=== PATIENT | female | born 1945 | race American Indian/Alaskan Native ===

== ENCOUNTER 2016-06-26 16:08 | Emergency (ER) | payer MEDICARE ==
--- NOTE | 2016-06-26 18:46 | Emergency Department Report ---
Chief Complaint: Dyspnea/Respdistress Stated Complaint: VOMITING/DIARRHEA/LEG PAIN/HISTORY HEART/STROKE Time Seen by Provider: 06/26/16 18:35 - HPI History of Present Illness: Patient here complaining nausea vomiting and diarrhea since Wednesday. She said she vomited once today. Reports diarrhea 2 today. She is complaining or right calf pain and says she had a clot in the past. She reports shortness of breath 2 days. Patient has a history of open-heart surgery. She is reporting left-sided chest pain off and on since this afternoon. Pain is 8 out of 10 to right leg and 5 out of 10 to left chest. She denies any fever or chills. - ROS Review of Systems: All systems are negative unless stated in HPI above. - Exam Vital Signs: Vital Signs 06/26/16 18:35 Temperature 97.8 F Pulse Rate 67 Respiratory 20 Rate Blood Pressure 164/89 O2 Sat by Pulse 97 Oximetry Physical Exam: General: This is a 71-year-old female appears to be in distress CV: S1, S2. Regular rate and rhythm. Lungs: Diminished air entry throughout lung pimentel due to COPD. Increased work of breathing. Extremity: No swelling or redness noted to lower extremities. Patient reports pain to RT calf when she stands and her toes. MSE screening note: Focused history and physical exam performed. Due to findings the following was ordered:see mdm ED Medical Decision Making - Medical Decision Making Medical decision making: Patient seen by provider in triage area. Appropriate protocol activated and patient to main ED to be seen by physician. ED Disposition for MSE Condition: Stable
[2016-06-26 20:10] LABS: Basophils % (Auto) 0.7 % (0.0-1.8); Eosinophils % (Auto) 1.2 % (0.0-4.3); Hemoglobin 13.9 gm/dl (10.1-14.3); Mean Corpuscular HGB Conc 33 % (30-34); Mean Corpuscular Hemoglobin 29 pg (28-32); Mean Corpuscular Volume 87 fl (79-97); Platelet Count 149 K/mm3 (140-440); Red Blood Count 4.82 M/mm3 (3.65-5.03); Red Cell Distribution Width 13.9 % (13.2-15.2); White Blood Count 7.6 K/mm3 (4.5-11.0)
[2016-06-26 20:22] LABS: INR 0.93 (0.87-1.13); Partial Thromboplastin Time 26.4 Sec. (24.2-36.6)
[2016-06-26 20:30] LABS: Alanine Aminotransferase 14 units/L (7-56); Albumin 4.5 g/dL (3.9-5); Albumin/Globulin Ratio 1.5 %; Alkaline Phosphatase 87 units/L (35-129); Bilirubin,Total 0.5 mg/dL (0.1-1.2); Blood Urea Nitrogen 12 mg/dL (7-17); Calcium 9.3 mg/dL (8.4-10.2); Carbon Dioxide 24 mmol/L (22-30); Chloride 101.5 mmol/L (98-107); Creatine Kinase 171 units/L (30-135); Glucose 103 mg/dL (65-100); Potassium 3.9 mmol/L (3.6-5.0); Sodium 141 mmol/L (137-145); Total Protein 7.6 g/dL (6.3-8.2)
[2016-06-26 20:34] LABS: Anion Gap 19 mmol/L
[2016-06-26] MEDS ORDERED: TYLENOL PO ONE (20:44)
[2016-06-26] MEDS ORDERED: NACL ONE (20:45)
--- NOTE | 2016-06-26 20:50 | Emergency Department Report ---
ED General Adult HPI - General Chief complaint: Dyspnea/Respdistress Stated complaint: VOMITING/DIARRHEA/LEG PAIN/HISTORY HEART/STROKE Time Seen by Provider: 06/26/16 18:45 Source: patient Mode of arrival: Ambulatory Limitations: Physical Limitation - History of Present Illness Initial comments: Patient is a 71-year-old female with history of diabetes, hypertension, CHF, COPD, history of a right lower extremity DVT currently not on any anticoagulation presents today because of multiple bouts of nausea vomiting and diarrhea for the last 5 days. Patient states that she has occasional abdominal pain with this and currently has mild periumbilical pain. States the she also has right lower extremity pain in the same location where she had a prior DVT. In addition she is complaining about left-sided chest pain that started this afternoon. She denies any significant shortness of breath. Severity scale (0 -10): 8 - Related Data Home Medications Medication Instructions Recorded Confirmed Last Taken Carvedilol [Coreg] 6.25 mg PO BID 04/20/13 11/14/14 11/13/14 Furosemide [Lasix] 20 mg PO DAILY 04/20/13 11/14/14 11/13/14 Nitroglycerin [Nitrostat] 0.4 mg SL Q5M PRN 04/20/13 11/14/14 11/13/14 Ranolazine [Ranexa] 1,000 mg PO BID 04/20/13 11/14/14 11/13/14 levETIRAcetam [Keppra TAB] 1,000 mg PO BID 04/20/13 11/14/14 11/13/14 Amlodipine Besylate [Norvasc] 10 mg PO QDAY 10/15/13 11/14/14 11/13/14 Insulin Glargine,Hum.rec.anlog 25 unit SUB-Q QHS 05/20/14 11/14/14 11/13/14 [Lantus Solostar] Insulin Regular, Human Inj 0 unit SQ ACHS PRN 05/20/14 11/14/14 11/13/14 [NovoLIN R Inj] Potassium Chloride [Klor-Con M20] 20 meq PO DAILY 11/14/14 11/14/14 11/13/14 Previous Rx's Medication Instructions Recorded Last Taken Type Losartan [Cozaar] 50 mg PO QDAY #30 tablet 04/25/13 11/13/14 Rx traMADol [Ultram 50 MG tab] 50 mg PO Q4HR PRN #15 tablet 11/13/14 11/13/14 Rx Antacid [Alum-Mag Hydrox-Simeth 30 ml PO Q4H PRN #100 cc 11/20/14 Unknown Rx [id number]] Ciprofloxacin [Ciprofloxacin ORAL 500 mg PO Q12H #14 ml 11/20/14 Unknown Rx LIQ] HYDROcodone/APAP 5-325 [[place] 1 each PO Q6H PRN #30 tablet 11/20/14 Unknown Rx 5-325 mg TAB] Metoclopramide [Reglan TAB] 10 mg PO Q6H PRN #30 tablet 11/20/14 Unknown Rx Omeprazole [PriLOSEC] 40 mg PO DAILY #30 capsule. 11/20/14 Unknown Rx Ranolazine ER [Ranexa ER] 1,000 mg PO BID #60 tablet 11/20/14 Unknown Rx metroNIDAZOLE [Flagyl] 500 mg PO TID #21 tablet 11/20/14 Unknown Rx Acetaminophen [Acetaminophen TAB] 500 mg PO Q6HR #14 tablet 06/26/16 Unknown Rx Acetaminophen/Codeine [Tylenol #3] 1 tab PO Q6H PRN #10 tab 06/26/16 Unknown Rx Allergies Allergy/AdvReac Type Severity Reaction Status Date / Time aspirin Allergy Swelling Verified 06/26/16 18:35 ED Review of Systems ROS: Stated complaint: VOMITING/DIARRHEA/LEG PAIN/HISTORY HEART/STROKE Other details as noted in HPI Comment: All other systems reviewed and negative Constitutional: denies: chills, fever ENT: denies: ear pain Respiratory: denies: cough Cardiovascular: chest pain Gastrointestinal: abdominal pain, vomiting, diarrhea ED Past Medical Hx - Past Medical History Hx Hypertension: Yes (EF 50-60%) Hx CVA: Yes Hx Heart Attack/AMI: Yes Hx Congestive Heart Failure: Yes Hx Diabetes: Yes Hx Deep Vein Thrombosis: Yes Hx Pulmonary Embolism: Yes Hx Headaches / Migraines: No Hx Seizures: Yes Hx COPD: Yes Hx HIV: No Additional medical history: CAD - Surgical History Hx Open Heart Surgery: Yes - Social History Smoking Status: Never Smoker - Medications Home Medications: Home Medications Medication Instructions Recorded Confirmed Last Taken Type Carvedilol [Coreg] 6.25 mg PO BID 04/20/13 11/14/14 11/13/14 History Furosemide [Lasix] 20 mg PO DAILY 04/20/13 11/14/14 11/13/14 History Nitroglycerin [Nitrostat] 0.4 mg SL Q5M PRN 04/20/13 11/14/14 11/13/14 History Ranolazine [Ranexa] 1,000 mg PO BID 04/20/13 11/14/14 11/13/14 History levETIRAcetam [Keppra TAB] 1,000 mg PO BID 04/20/13 11/14/14 11/13/14 History Losartan [Cozaar] 50 mg PO QDAY #30 tablet 04/25/13 11/14/14 11/13/14 Rx Amlodipine Besylate [Norvasc] 10 mg PO QDAY 10/15/13 11/14/14 11/13/14 History Insulin Glargine,Hum.rec.anlog 25 unit SUB-Q QHS 05/20/14 11/14/14 11/13/14 History [Lantus Solostar] Insulin Regular, Human Inj 0 unit SQ ACHS PRN 05/20/14 11/14/14 11/13/14 History [NovoLIN R Inj] traMADol [Ultram 50 MG tab] 50 mg PO Q4HR PRN #15 tablet 11/13/14 11/14/1411/13 Rx Potassium Chloride [Klor-Con M20] 20 meq PO DAILY 11/14/14 11/14/14 11/13/14 History Antacid [Alum-Mag Hydrox-Simeth 30 ml PO Q4H PRN #100 cc 11/20/14 Unknown Rx [id number]/5Ml] Ciprofloxacin [Ciprofloxacin ORAL 500 mg PO Q12H #14 ml 11/20/14 Unknown Rx LIQ] HYDROcodone/APAP 5-325 [[place] 1 each PO Q6H PRN #30 tablet 11/20/14 Unknown Rx 5-325 mg TAB] Metoclopramide [Reglan TAB] 10 mg PO Q6H PRN #30 tablet 11/20/14 Unknown Rx Omeprazole [PriLOSEC] 40 mg PO DAILY #30 capsule. 11/20/14 Unknown Rx Ranolazine ER [Ranexa ER] 1,000 mg PO BID #60 tablet 11/20/14 Unknown Rx metroNIDAZOLE [Flagyl] 500 mg PO TID #21 tablet 11/20/14 Unknown Rx Acetaminophen [Acetaminophen TAB] 500 mg PO Q6HR #14 tablet 06/26/16 Unknown Rx Acetaminophen/Codeine [Tylenol #3] 1 tab PO Q6H PRN #10 tab 06/26/16 Unknown Rx ED Physical Exam - General Limitations: Physical Limitation General appearance: alert - Head Head exam: Present: atraumatic - Eye Eye exam: Present: normal appearance - ENT ENT exam: Present: normal exam - Respiratory Respiratory exam: Present: normal lung sounds bilaterally. Absent: respiratory distress - Cardiovascular Cardiovascular Exam: Present: regular rate, normal rhythm - GI/Abdominal GI/Abdominal exam: Present: soft. Absent: distended, tenderness - Neurological Exam Neurological exam: Present: alert, oriented X3 - Psychiatric Psychiatric exam: Present: normal affect ED Course Vital Signs 06/26/16 06/26/16 06/26/16 18:35 20:23 20:41 Temperature 97.8 F Pulse Rate 67 70 Respiratory 20 18 Rate Blood Pressure 164/89 O2 Sat by Pulse 97 97 Oximetry 06/26/16 21:00 Temperature Pulse Rate 70 Respiratory 12 Rate Blood Pressure 164/80 O2 Sat by Pulse Oximetry ED Medical Decision Making - Lab Data Result diagrams: 06/26/16 19:38 06/26/16 19:50 - Medical Decision Making IV, labs, CTA chest, tylenol CTA chest negative labs unremarkable EKG shows normal sinus rhythm with PACs and PVC, no ST-T changes Patient has no chest pain here. Given that there is no tenderness on the abdomen, no current chest pain, EKG is unchanged from prior and the patient's labs and vitals are unremarkable, patient appears to be stable for outpatient management. I discussed with the patient although results and patient prefers outpatient management. She prefers to go home. The patient to the patient the reasons to return to the emergency room immediately and she endorsed understanding. Critical care attestation.: If time is entered above; I have spent that time in minutes in the direct care of this critically ill patient, excluding procedure time. ED Disposition Clinical Impression: Abdominal pain Qualifiers: Abdominal location: periumbilical Qualified Code(s): R10.33 - Periumbilical pain Disposition: DISCHARGED TO HOME OR SELFCARE Is pt being admited?: No Does the pt Need Aspirin: No Condition: Stable Instructions: Abdominal Pain (ED) Additional Instructions: Please follow up with her primary care doctor in the next 2-3 days. Return to the emergency room if you have any new or worsening symptoms. Prescriptions: Acetaminophen [Acetaminophen TAB] 500 mg PO Q6HR #14 tablet Acetaminophen/Codeine [Tylenol #3] 1 tab PO Q6H PRN #10 tab PRN Reason: Pain Time of Disposition: 23:50
[2016-06-26 21:55] LABS: Bacteria,Urine 1+ /HPF (Negative); Bilirubin,Urine NEG (Negative); Blood,Urine NEG (Negative); Ketones,Urine NEG (Negative); Leukocyte Esterase,Urine NEG (Negative); Nitrite,Urine NEG (Negative); Protein,Urine <15 mg/dL mg/dL (Negative); Urobilinogen,Urine < 2.0 mg/dL (<2.0)
--- NOTE | 2016-06-26 22:41 | Cat Scan Report ---
FINAL REPORT PROCEDURE: CT ANGIO CHEST TECHNIQUE: Computerized tomographic angiography of the chest was performed after the IV injection of iodinated nonionic contrast including image processing. The image data was postprocessed using 2-dimensional multiplanar reformatted (MPR) and 3-dimensional (MIP and/or volume rendered) techniques. HISTORY: left sided cp, hx of dvt COMPARISON: No prior studies are available for comparison. FINDINGS: Mild atelectasis is seen at the right lung base. No pneumothorax or pleural effusion is seen. Intrahepatic and extrahepatic biliary ductal dilation may be a normal postsurgical finding. No mediastinal lymphadenopathy is seen. Heart and thoracic aorta are normal in size. No evidence of dissection is seen but the mid to distal thoracic aorta is not well enhanced to evaluate fully. No pulmonary embolus is seen. IMPRESSION: No pulmonary embolus is seen.
[2016-06-26] MEDS ORDERED: TYLENOL ONE (23:00)
[2016-06-27 00:34] VITALS: BP 165/89
--- NOTE | 2016-06-27 09:56 | XRay Report ---
Chest 2 views: Compared to 05/20/14. History: Dyspnea. Findings: Normal cardiomediastinal silhouette. Trachea is midline. No consolidation, pneumothorax or pleural effusion. Impression: No acute cardiopulmonary findings.
== END 2016-06-27 00:36 | disposition home or self-care (01) ==
LOC: ED 16:08
DX: R10.33 Periumbilical pain (principal); I10 Essential (primary) hypertension; I25.2 Old myocardial infarction; I50.9 Heart failure, unspecified; E11.9 Type 2 diabetes mellitus without complications; G43.909 Migraine, unspecified, not intractable, without status migrainosus; J44.9 Chronic obstructive pulmonary disease, unspecified; Z86.73 Personal history of transient ischemic attack (TIA), and cerebral infarction without residual deficits; Z86.718 Personal history of other venous thrombosis and embolism; Z86.711 Personal history of pulmonary embolism
CPT/HCPCS: 36415; 71020; 71275; 80053; 81001; 82140; 82550; 82553; 84484; 85025; 85610; 85730; 93005; 93010; 99285; Q9967

== ENCOUNTER 2018-09-27 06:43 | Inpatient (IN) | payer MEDICARE ==
--- NOTE | 2018-09-27 08:07 | Emergency Department Report ---
ED General Adult HPI - General Chief complaint: Fall Stated complaint: WEAKNESS/FALL Time Seen by Provider: 09/27/18 07:51 Source: patient, EMS Mode of arrival: Stretcher Limitations: No Limitations - History of Present Illness Initial comments: Patient presents to the emergency department via EMS for syncopal episode. Patient states she woke up at approximately 5 AM to use the restroom and was awakened by neighbors as she was found outside of her home on the front porch with her clothes soiled. Patient denies chest pain, sweats of breath, or abd ominal pain. -: Sudden Severity scale (0 -10): 0 Improves with: none Worsens with: none Associated Symptoms: denies other symptoms Treatments Prior to Arrival: none - Related Data Home Medications Medication Instructions Recorded Confirmed Last Taken Carvedilol [Coreg] 6.25 mg PO BID 04/20/13 11/14/14 11/13/14 Furosemide [Lasix] 20 mg PO DAILY 04/20/13 11/14/14 11/13/14 Nitroglycerin [Nitrostat] 0.4 mg SL Q5M PRN 04/20/13 11/14/14 11/13/14 Ranolazine [Ranexa] 1,000 mg PO BID 04/20/13 11/14/14 11/13/14 levETIRAcetam [Keppra TAB] 1,000 mg PO BID 04/20/13 11/14/14 11/13/14 Amlodipine Besylate [Norvasc] 10 mg PO QDAY 10/15/13 11/14/14 11/13/14 Insulin Glargine,Hum.rec.anlog 25 unit SUB-Q QHS 05/20/14 11/14/14 11/13/14 [Lantus Solostar] Insulin Regular, Human Inj 0 unit SQ ACHS PRN 05/20/14 11/14/14 11/13/14 [NovoLIN R Inj] Potassium Chloride [Klor-Con M20] 20 meq PO DAILY 11/14/14 11/14/14 11/13/14 Previous Rx's Medication Instructions Recorded Last Taken Type Losartan [Cozaar] 50 mg PO QDAY #30 tablet 04/25/13 11/13/14 Rx traMADol [Ultram 50 MG tab] 50 mg PO Q4HR PRN #15 tablet 11/13/14 11/13/14 Rx Antacid [Alum-Mag Hydrox-Simeth 30 ml PO Q4H PRN #100 cc 11/20/14 Unknown Rx [id number]/5Ml] Ciprofloxacin [Ciprofloxacin ORAL 500 mg PO Q12H #14 ml 11/20/14 Unknown Rx LIQ] HYDROcodone/APAP 5-325 [[place] 1 each PO Q6H PRN #30 tablet 11/20/14 Unknown Rx 5-325 mg TAB] Metoclopramide [Reglan TAB] 10 mg PO Q6H PRN #30 tablet 11/20/14 Unknown Rx Omeprazole [PriLOSEC] 40 mg PO DAILY #30 capsule. 11/20/14 Unknown Rx Ranolazine ER [Ranexa ER] 1,000 mg PO BID #60 tablet 11/20/14 Unknown Rx metroNIDAZOLE [Flagyl] 500 mg PO TID #21 tablet 11/20/14 Unknown Rx Acetaminophen [Acetaminophen TAB] 500 mg PO Q6HR #14 tablet 06/26/16 Unknown Rx Acetaminophen/Codeine [Tylenol #3] 1 tab PO Q6H PRN #10 tab 06/26/16 Unknown Rx Allergies Allergy/AdvReac Type Severity Reaction Status Date / Time aspirin Allergy Swelling Verified 06/26/16 18:35 ED Review of Systems ROS: Stated complaint: WEAKNESS/FALL Other details as noted in HPI Comment: All other systems reviewed and negative Constitutional: denies: chills, fever Eyes: denies: eye pain, eye discharge, vision change ENT: denies: ear pain, throat pain Respiratory: denies: cough, shortness of breath, wheezing Cardiovascular: denies: chest pain, palpitations Endocrine: no symptoms reported Gastrointestinal: denies: abdominal pain, nausea, diarrhea Genitourinary: denies: urgency, dysuria, discharge Musculoskeletal: denies: back pain, joint swelling, arthralgia Skin: denies: rash, lesions Neurological: other (syncope). denies: headache, weakness, paresthesias Psychiatric: denies: anxiety, depression Hematological/Lymphatic: denies: easy bleeding, easy bruising ED Past Medical Hx - Past Medical History Hx Hypertension: Yes (EF 50-60%) Hx CVA: Yes Hx Heart Attack/AMI: Yes Hx Congestive Heart Failure: Yes Hx Diabetes: Yes Hx Deep Vein Thrombosis: Yes Hx Pulmonary Embolism: Yes Hx Headaches / Migraines: No Hx Seizures: Yes Hx COPD: Yes Hx HIV: No Additional medical history: CAD - Surgical History Hx Open Heart Surgery: Yes - Social History Smoking Status: Unknown if ever smoked Substance Use Type: None - Medications Home Medications: Home Medications Medication Instructions Recorded Confirmed Last Taken Type Carvedilol [Coreg] 6.25 mg PO BID 04/20/13 11/14/14 11/13/14 History Furosemide [Lasix] 20 mg PO DAILY 04/20/13 11/14/14 11/13/14 History Nitroglycerin [Nitrostat] 0.4 mg SL Q5M PRN 04/20/13 11/14/14 11/13/14 History Ranolazine [Ranexa] 1,000 mg PO BID 04/20/13 11/14/14 11/13/14 History levETIRAcetam [Keppra TAB] 1,000 mg PO BID 04/20/13 11/14/14 11/13/14 History Losartan [Cozaar] 50 mg PO QDAY #30 tablet 04/25/13 11/14/14 11/13/14 Rx Amlodipine Besylate [Norvasc] 10 mg PO QDAY 10/15/13 11/14/14 11/13/14 History Insulin Glargine,Hum.rec.anlog 25 unit SUB-Q QHS 05/20/14 11/14/14 11/13/14 History [Lantus Solostar] Insulin Regular, Human Inj 0 unit SQ ACHS PRN 05/20/14 11/14/14 11/13/14 History [NovoLIN R Inj] traMADol [Ultram 50 MG tab] 50 mg PO Q4HR PRN #15 tablet 11/13/14 11/14/14 11/13/14 Rx Potassium Chloride [Klor-Con M20] 20 meq PO DAILY 11/14/14 11/14/14 11/13/14 History Antacid [Alum-Mag Hydrox-Simeth 30 ml PO Q4H PRN #100 cc 11/20/14 Unknown Rx [id number]/[id number]] Ciprofloxacin [Ciprofloxacin ORAL 500 mg PO Q12H #14 ml 11/20/14 Unknown Rx LIQ] HYDROcodone/APAP 5-325 [[place] 1 each PO Q6H PRN #30 tablet 11/20/14 Unknown Rx 5-325 mg TAB] Metoclopramide [Reglan TAB] 10 mg PO Q6H PRN #30 tablet 11/20/14 Unknown Rx Omeprazole [PriLOSEC] 40 mg PO DAILY #30 capsule. 11/20/14 Unknown Rx Ranolazine ER [Ranexa ER] 1,000 mg PO BID #60 tablet 11/20/14 Unknown Rx metroNIDAZOLE [Flagyl] 500 mg PO TID #21 tablet 11/20/14 Unknown Rx Acetaminophen [Acetaminophen TAB] 500 mg PO Q6HR #14 tablet 06/26/16 Unknown Rx Acetaminophen/Codeine [Tylenol #3] 1 tab PO Q6H PRN #10 tab 06/26/16 Unknown Rx ED Physical Exam - General Limitations: No Limitations General appearance: alert, in no apparent distress - Head Head exam: Present: atraumatic, normocephalic - Eye Eye exam: Present: normal appearance, PERRL, EOMI - ENT ENT exam: Present: mucous membranes moist - Neck Neck exam: Present: normal inspection - Respiratory Respiratory exam: Present: normal lung sounds bilaterally. Absent: respiratory distress, wheezes, rales, rhonchi - Cardiovascular Cardiovascular Exam: Present: regular rate, normal rhythm. Absent: systolic murmur, diastolic murmur, rubs, gallop - GI/Abdominal GI/Abdominal exam: Present: soft, normal bowel sounds. Absent: distended, tenderness - Extremities Exam Extremities exam: Present: normal inspection - Back Exam Back exam: Present: normal inspection - Neurological Exam Neurological exam: Present: alert, oriented X3, CN II-XII intact, other (during the mental mini status exam the patient answers all questions correctly suffered a year; patient states it is 2017). Absent: motor sensory deficit - Psychiatric Psychiatric exam: Present: normal affect, normal mood - Skin Skin exam: Present: warm, dry, intact, normal color. Absent: rash ED Course Vital Signs 09/27/18 09/27/18 07:33 07:38 Temperature 98.3 F Pulse Rate 74 74 Respiratory 21 16 Rate Blood Pressure 143/81 O2 Sat by Pulse 95 95 Oximetry ED Medical Decision Making - Lab Data Result diagrams: 09/27/18 08:24 09/27/18 08:24 Lab Results 09/27/18 09/27/18 09/27/18 Range/Units 08:09 08:24 08:24 WBC 12.7 H (4.5-11.0) K/mm3 RBC 5.04 H (3.65-5.03) M/mm3 Hgb 14.2 (10.1-14.3) gm/dl Hct 43.6 H (30.3-42.9) % MCV 87 (79-97) fl MCH 28 (28-32) pg MCHC 33 (30-34) % RDW 14.6 (13.2-15.2) % Plt Count 187 (140-440) K/mm3 Lymph % (Auto) 9.9 L (13.4-35.0) % [place] % (Auto) 4.5 (0.0-7.3) % Eos % (Auto) 0.0 (0.0-4.3) % Baso % (Auto) 0.4 (0.0-1.8) % Lymph # 1.3 (1.2-5.4) K/mm3 [place]anan # 0.6 (0.0-0.8) K/mm3 Eos # 0.0 (0.0-0.4) K/mm3 Baso # 0.0 (0.0-0.1) K/mm3 Seg Neutrophils % 85.2 H (40.0-70.0) % Seg Neutrophils # 10.8 H (1.8-7.7) K/mm3 PT 13.3 (12.2-14.9) Sec. INR 0.95 (0.87-1.13) APTT 23.0 L (24.2-36.6) Sec. Sodium (137-145) mmol/L Potassium (3.6-5.0) mmol/L Chloride (98-107) mmol/L Carbon Dioxide (22-30) mmol/L Anion Gap mmol/L BUN (7-17) mg/dL Creatinine (0.7-1.2) mg/dL Estimated GFR ml/min BUN/Creatinine Ratio % Glucose (65-100) mg/dL POC Glucose 353 H (70-105) Calcium (8.4-10.2) mg/dL Total Bilirubin (0.1-1.2) mg/dL AST (5-40) units/L ALT (7-56) units/L Alkaline Phosphatase (35-129) units/L Ammonia (25-60) umol/L Troponin T (0.00-0.029) ng/mL NT-Pro-B Natriuret Pep (0-900) pg/mL Total Protein (6.3-8.2) g/dL Albumin (3.9-5) g/dL Albumin/Globulin Ratio % Salicylates (2.8-20.0) mg/dL Acetaminophen (10.0-30.0) ug/mL Plasma/Serum Alcohol (0-0.07) % 09/27/18 09/27/18 09/27/18 Range/Units 08:24 08:24 08:24 WBC (4.5-11.0) K/mm3 RBC (3.65-5.03) M/mm3 Hgb (10.1-14.3) gm/dl Hct (30.3-42.9) % MCV (79-97) fl MCH (28-32) pg MCHC (30-34) % RDW (13.2-15.2) % Plt Count (140-440) K/mm3 Lymph % (Auto) (13.4-35.0) % [place] % (Auto) (0.0-7.3) % Eos % (Auto) (0.0-4.3) % Baso % (Auto) (0.0-1.8) % Lymph # (1.2-5.4) K/mm3 [place] # (0.0-0.8) K/mm3 Eos # (0.0-0.4) K/mm3 Baso # (0.0-0.1) K/mm3 Seg Neutrophils % (40.0-70.0) % Seg Neutrophils # (1.8-7.7) K/mm3 PT (12.2-14.9) Sec. INR (0.87-1.13) APTT (24.2-36.6) Sec. Sodium 138 (137-145) mmol/L Potassium 4.1 (3.6-5.0) mmol/L Chloride 97.6 L (98-107) mmol/L Carbon Dioxide 24 (22-30) mmol/L Anion Gap 21 mmol/L BUN 24 H (7-17) mg/dL Creatinine 1.1 (0.7-1.2) mg/dL Estimated GFR 59 ml/min BUN/Creatinine Ratio 22 % Glucose 351 H (65-100) mg/dL POC Glucose (70-105) Calcium 9.6 (8.4-10.2) mg/dL Total Bilirubin 0.70 (0.1-1.2) mg/dL AST 12 (5-40) units/L ALT 14 (7-56) units/L Alkaline Phosphatase 107 (35-129) units/L Ammonia 21.0 L (25-60) umol/L Troponin T < 0.010 (0.00-0.029) ng/mL NT-Pro-B Natriuret Pep (0-900) pg/mL Total Protein 7.6 (6.3-8.2) g/dL Albumin 4.2 (3.9-5) g/dL Albumin/Globulin Ratio 1.2 % Salicylates < 0.3 L (2.8-20.0) mg/dL Acetaminophen (10.0-30.0) ug/mL Plasma/Serum Alcohol (0-0.07) % 09/27/18 09/27/18 09/27/18 Range/Units 08:24 08:24 08:24 WBC (4.5-11.0) K/mm3 RBC (3.65-5.03) M/mm3 Hgb (10.1-14.3) gm/dl Hct (30.3-42.9) % MCV (79-97) fl MCH (28-32) pg MCHC (30-34) % RDW (13.2-15.2) % Plt Count (140-440) K/mm3 Lymph % (Auto) (13.4-35.0) % [place] % (Auto) (0.0-7.3) % Eos % (Auto) (0.0-4.3) % Baso % (Auto) (0.0-1.8) % Lymph # (1.2-5.4) K/mm3 [place] # (0.0-0.8) K/mm3 Eos # (0.0-0.4) K/mm3 Baso # (0.0-0.1) K/mm3 Seg Neutrophils % (40.0-70.0) % Seg Neutrophils # (1.8-7.7) K/mm3 PT (12.2-14.9) Sec. INR (0.87-1.13) APTT (24.2-36.6) Sec. Sodium (137-145) mmol/L Potassium (3.6-5.0) mmol/L Chloride (98-107) mmol/L Carbon Dioxide (22-30) mmol/L Anion Gap mmol/L BUN (7-17) mg/dL Creatinine (0.7-1.2) mg/dL Estimated GFR ml/min BUN/Creatinine Ratio % Glucose (65-100) mg/dL POC Glucose (70-105) Calcium (8.4-10.2) mg/dL Total Bilirubin (0.1-1.2) mg/dL AST (5-40) units/L ALT (7-56) units/L Alkaline Phosphatase (35-129) units/L Ammonia (25-60) umol/L Troponin T (0.00-0.029) ng/mL NT-Pro-B Natriuret Pep 95.15 (0-900) pg/mL Total Protein (6.3-8.2) g/dL Albumin (3.9-5) g/dL Albumin/Globulin Ratio % Salicylates (2.8-20.0) mg/dL Acetaminophen < 5.0 L (10.0-30.0) ug/mL Plasma/Serum Alcohol < 0.01 (0-0.07) % 09/27/18 Range/Units 11:00 WBC (4.5-11.0) K/mm3 RBC (3.65-5.03) M/mm3 Hgb (10.1-14.3) gm/dl Hct (30.3-42.9) % MCV (79-97) fl MCH (28-32) pg MCHC (30-34) % RDW (13.2-15.2) % Plt Count (140-440) K/mm3 Lymph % (Auto) (13.4-35.0) % [place] % (Auto) (0.0-7.3) % Eos % (Auto) (0.0-4.3) % Baso % (Auto) (0.0-1.8) % Lymph # (1.2-5.4) K/mm3 [place] # (0.0-0.8) K/mm3 Eos # (0.0-0.4) K/mm3 Baso # (0.0-0.1) K/mm3 Seg Neutrophils % (40.0-70.0) % Seg Neutrophils # (1.8-7.7) K/mm3 PT (12.2-14.9) Sec. INR (0.87-1.13) APTT (24.2-36.6) Sec. Sodium (137-145) mmol/L Potassium (3.6-5.0) mmol/L Chloride (98-107) mmol/L Carbon Dioxide (22-30) mmol/L Anion Gap mmol/L BUN (7-17) mg/dL Creatinine (0.7-1.2) mg/dL Estimated GFR ml/min BUN/Creatinine Ratio % Glucose (65-100) mg/dL POC Glucose (70-105) Calcium (8.4-10.2) mg/dL Total Bilirubin (0.1-1.2) mg/dL AST (5-40) units/L ALT (7-56) units/L Alkaline Phosphatase (35-129) units/L Ammonia (25-60) umol/L Troponin T < 0.010 (0.00-0.029) ng/mL NT-Pro-B Natriuret Pep (0-900) pg/mL Total Protein (6.3-8.2) g/dL Albumin (3.9-5) g/dL Albumin/Globulin Ratio % Salicylates (2.8-20.0) mg/dL Acetaminophen (10.0-30.0) ug/mL Plasma/Serum Alcohol (0-0.07) % - EKG Data -: EKG Interpreted by Pr EKG shows normal: sinus rhythm Rate: normal - Radiology Data Radiology results: report reviewed - Medical Decision Making discussed results with patient and family Critical care attestation.: If time is entered above; I have spent that time in minutes in the direct care of this critically ill patient, excluding procedure time. ED Disposition Clinical Impression: Syncope Disposition: DC-[id number] OP ADMIT IP TO THIS HOSP Is pt being admited?: Yes Does the pt Need Aspirin: Yes Condition: Fair Instructions: Syncope (ED) Referrals: SHANE RAINEY MD [Primary Care Provider] - 3-5 Days
--- NOTE | 2018-09-27 08:31 | XRay Report ---
AP PELVIS ONE VIEW: 09/27/18 06:43:00 CLINICAL: Fall and pelvic pain. FINDINGS: The pelvic bones and hips are intact with no fracture or dislocation. Mild arthritis of the hips. Bilateral SI joint sclerosis with no erosions. Benign soft tissue calcifications. IMPRESSION: Negative study with no evidence of traumatic injury.
[2018-09-27 08:46] LABS: Basophils % (Auto) 0.4 % (0.0-1.8); Hematocrit 43.6 % (30.3-42.9); Hemoglobin 14.2 gm/dl (10.1-14.3); Lymphocytes # (Auto) 1.3 K/mm3 (1.2-5.4); Lymphocytes % (Auto) 9.9 % (13.4-35.0); Mean Corpuscular HGB Conc 33 % (30-34); Mean Corpuscular Volume 87 fl (79-97); Monocytes # (Auto) 0.6 K/mm3 (0.0-0.8); Monocytes % (Auto) 4.5 % (0.0-7.3); Platelet Count 187 K/mm3 (140-440); Red Blood Count 5.04 M/mm3 (3.65-5.03); Red Cell Distribution Width 14.6 % (13.2-15.2)
[2018-09-27 08:57] LABS: INR 0.95 (0.87-1.13)
[2018-09-27 09:06] LABS: Alanine Aminotransferase 14 units/L (7-56); Albumin 4.2 g/dL (3.9-5); BUN/Creatinine Ratio 22; Blood Urea Nitrogen 24 mg/dL (7-17); Calcium 9.6 mg/dL (8.4-10.2); Hemolysis Index 11
--- NOTE | 2018-09-27 09:33 | Cat Scan Report ---
CT HEAD WITHOUT CONTRAST: HISTORY: Altered mental status. TECHNIQUE: Sequential CT images without contrast. FINDINGS: Images obtained show bilateral prominence of the sulci and ventricles. There are no abnormal intra- or extra-axial blood or fluid collections. There are no focal masses or evidence of mass effect. The carter white matter differentiation appears within normal limits. Regions of periventricular decreased attenuation are consistent with microangiopathic ischemic disease. Focal chronic infarcts are identified in both posterior frontal lobes measuring 1.5 cm on the left side and 1.2 cm on the right side. The posterior fossa structures including the fourth ventricle, cerebellum, and brainstem appear normal. IMPRESSION: Evidence of atrophy and microangiopathic ischemic disease. Chronic focal infarcts in both posterior frontal lobes. No acute intracranial process noted.
--- NOTE | 2018-09-27 10:45 | XRay Report ---
AP CHEST: HISTORY: Syncope Previous CABG changes are noted. AP view of the chest demonstrates a normal mediastinal and cardiac contour with clear lungs and normal bony and soft tissue structures. IMPRESSION: Unremarkable AP chest. No significant change since 06/26/16.
[2018-09-27] MEDS ORDERED: NACL 0.9% 500 ML 500 ML IV ONE (12:42)
[2018-09-27 15:09] LABS: Bilirubin,Urine NEG (Negative); Blood,Urine NEG (Negative); Color,Urine Yellow (Yellow); Protein,Urine <15 mg/dL mg/dL (Negative); Urobilinogen,Urine < 2.0 mg/dL (<2.0)
[2018-09-27 15:18] LABS: Amphetamine Screen,Urine PRESUMPTIVE NEGATIVE; Benzodiazepines Screen,Urine PRESUMPTIVE NEGATIVE; Cannabinoid Screen,Urine PRESUMPTIVE NEGATIVE; Cocaine Screen,Urine PRESUMPTIVE NEGATIVE; Methadone Screen,Urine PRESUMPTIVE NEGATIVE; Opiate Screen,Urine PRESUMPTIVE NEGATIVE
[2018-09-28] MEDS ORDERED: PROAIR IH PRN (00:04)
--- NOTE | 2018-09-28 00:04 | Event Note ---
Date: 09/27/18 See dictated H/p in reports Syncope HTN T2DM CABG
[2018-09-28] MEDS ORDERED: PROVENTIL IH PRN (00:07)
[2018-09-28] MEDS ORDERED: TYLENOL PO PRN (00:12)
[2018-09-28] MEDS ORDERED: DILAUDID IV PRN (00:12)
[2018-09-28] MEDS ORDERED: ZOFRAN IV PRN (00:12)
[2018-09-28] MEDS ORDERED: PERCOCET 5/325 PO PRN (00:12)
[2018-09-28] MEDS ORDERED: SODIUM CHLORIDE FLUSH SYRINGE 10 ML IV PRN (00:12)
[2018-09-28] MEDS ORDERED: NON-FORMULARY (Budesonide/Formoterol Fumarate [Symbicort 160-4.5 Mcg Inhaler] 2 PUFF) IH SCH (00:15)
--- NOTE | 2018-09-28 01:02 | History and Physical Report ---
CHIEF COMPLAINT: Passed out this morning at 06:00 a.m. HISTORY OF PRESENT ILLNESS: A 73-year-old female -Citizen Of [place] with history of hypertension, insulin-dependent diabetes, CHF, seizure disorder, comes in for apparently passing out around 06:00 a.m. in the morning. The patient was putting trash cans in the front and while returning, she passed out. Neighbors found her and called EMS. Her clothes were soiled. No chest pain. No diaphoresis. No shortness of breath. No recent travel. No palpitations. No cough, no fever, no chills. PAST MEDICAL HISTORY: As mentioned, hypertension, CHF, coronary artery disease, seizure disorder, insulin-dependent diabetes. PAST SURGICAL HISTORY: CABG, number of vessels not known. SOCIAL HISTORY: Does not smoke. No alcohol, no recreational drugs. PAST SURGICAL HISTORY: Otherwise, also hysterectomy. FAMILY HISTORY: Hypertension. CURRENT MEDICATIONS: Coreg 6.25 b.i.d., Lasix 20 mg once a day, nitroglycerin 0.4 mg sublingual p.r.n., Ranexa 1000 mg twice a day, Keppra 1000 mg twice a day, losartan 50 mg once a day, amlodipine 10 mg once a day, insulin glargine 25 units at night time, regular insulin 5 units before each meal, omeprazole 40 mg daily. REVIEW OF SYSTEMS: Significant for passing out around 06:00 a.m. with no chest pain, no diaphoresis, no shortness of breath. A 14-point review of systems done and essentially negative. PHYSICAL EXAMINATION: GENERAL: Elderly female, cooperative during examination. VITAL SIGNS: Blood pressure is 138/71, temperature 97.7, pulse is 65, respirations are 20, sats are 94%. HEENT: Unremarkable. Pupils are equal and reactive. NECK: Supple, no lymphadenopathy, no thyromegaly. LUNGS: Clear to auscultation and percussion. Good air entry. CARDIOVASCULAR: S1, S2 heard. No gallop, no murmur, no rub. Apical impulse in left fifth intercostal space and midclavicular line. ABDOMEN: Soft and benign. No hepatosplenomegaly. No guarding, no rigidity. Hernial orifices are normal. EXTREMITIES: Good pedal pulses. CENTRAL NERVOUS SYSTEM: Slight right-sided weakness present. Otherwise, exam normal. SKIN: Normal. LABORATORY DATA: Significant for white count of 12,700, hemoglobin of 14.2, hematocrit of 43.6, platelet count of 187,000. Chemistry: Sodium is 138, potassium is 4.1, chloride is 97.6. BUN and creatinine is 24 and 1.1. Glucose is 351, AST is 12, ALT is 14, alkaline phosphatase is 107. Troponin is less than 0.010. BNP is 95.15. Total protein is 7.6, albumin is 4.2, albumin to globulin ratio is 1.2. Urine is negative. Drug screen is negative. EKG shows normal sinus rhythm, heart rate of [address] per minute. No acute ST-T wave changes. No arrhythmias. Chest x-ray shows unremarkable AP chest. Pelvic x-ray shows no evidence of fracture. CT of the head was normal. No acute findings. Evidence of atrophy and microangiopathic ischemic disease, chronic focal infarct. ASSESSMENT AND PLAN: 1. Syncope. Syncope workup. The patient needs to get Lexiscan, echocardiogram and carotid duplex scan in the morning. Also, serial troponins. 2. Hypertension. Continue Coreg and amlodipine. 3. Insulin-dependent diabetes. Continue Lantus and Humalog before meals and at bedtime. Also, coverage. Check hemoglobin A1c. 4. Congestive heart failure. Continue Lasix. 5. Seizure disorder. Continue Keppra 1000 mg twice a day. 6. Coronary artery disease. Continue Ranexa. 7. Deep venous thrombosis prophylaxis, Lovenox 40 mg subcutaneous daily and gastrointestinal prophylaxis ordered. JOB# [id number] VSM/NTS
[2018-09-28] MEDS: LOPRESSOR PO SCH ×3 (01:47→22:55)
[2018-09-28] MEDS: HumaLOG SUB-Q SCH ×7 (08:15→22:55)
[2018-09-28 08:31] LABS: Alanine Aminotransferase 12 units/L (7-56); Albumin 3.7 g/dL (3.9-5); BUN/Creatinine Ratio 23; Blood Urea Nitrogen 14 mg/dL (7-17); Calcium 8.5 mg/dL (8.4-10.2); Hemolysis Index 30
[2018-09-28] MEDS: PULMICORT IH SCH ×2 (09:57→21:25)
[2018-09-28] MEDS: BROVANA NEBU IH SCH ×2 (09:58→21:25)
[2018-09-28] MEDS ORDERED: LEXISCAN IV ONE ×2 (11:20→11:21)
--- NOTE | 2018-09-28 13:37 | Progress Note ---
Assessment and Plan Syncope HTN T2DM CAD with 3v CABG 10/2011 Prior CVA Prior DVT/PE Plan - monitor at tele, s/p stress test today - cardiology consulted will follow result - resume home meds, consistent carbdiet, insulin SSI - monitor BP, orthostatic vitals, aspirin/statin Subjective Date of service: 09/28/18 Interval history: Patient seen and examined No new complaint, denies chest pain tolerating diet Objective - Constitutional Vitals: Vital Signs - 12hr 09/28/18 09/28/18 09/28/18 03:57 08:35 11:25 Temperature 98.2 F 97.4 F L Pulse Rate 60 Respiratory 18 18 Rate Blood Pressure 143/71 170/78 166/78 O2 Sat by Pulse 95 Oximetry 09/28/18 09/28/18 09/28/18 11:33 11:43 11:44 Temperature Pulse Rate 57 L 65 Respiratory Rate Blood Pressure 166/78 146/54 146/54 O2 Sat by Pulse Oximetry 09/28/18 09/28/18 09/28/18 11:45 11:46 11:47 Temperature Pulse Rate 75 72 71 Respiratory Rate Blood Pressure 113/57 124/61 141/68 O2 Sat by Pulse Oximetry 09/28/18 11:48 Temperature Pulse Rate 69 Respiratory Rate Blood Pressure 137/66 O2 Sat by Pulse Oximetry General appearance: Present: no acute distress, well-nourished - EENT Eyes: PERRL, EOM intact ENT: hearing intact, clear oral mucosa Ears: bilateral: normal - Neck Neck: supple, normal ROM - Respiratory Respiratory effort: normal Respiratory: bilateral: CTA - Cardiovascular Rhythm: regular Heart Sounds: Present: S1 & S2. Absent: gallop, rub Extremities: pulses intact, No edema, normal color, Full ROM - Gastrointestinal General gastrointestinal: Present: soft, non-tender, non-distended, normal bowel sounds - Integumentary Integumentary: clear, warm, dry - Musculoskeletal Musculoskeletal: 1, strength equal bilaterally - Neurologic Neurologic: moves all extremities - Psychiatric Psychiatric: memory intact, appropriate mood/affect, intact judgment & insight - Labs CBC & Chem 7: 09/27/18 08:24 09/29/18 06:21 Labs: Abnormal lab results 09/27/18 09/27/18 09/28/18 Range/Units 20:13 22:41 00:47 Creatinine (0.7-1.2) mg/dL Glucose (65-100) mg/dL POC Glucose 356 H 257 H (70-105) Hemoglobin A1c 7.9 H (4-6) % Albumin (3.9-5) g/dL 09/28/18 09/28/18 Range/Units 06:57 07:48 Creatinine 0.6 L (0.7-1.2) mg/dL Glucose 283 H (65-100) mg/dL POC Glucose 251 H (70-105) Hemoglobin A1c (4-6) % Albumin 3.7 L (3.9-5) g/dL
[2018-09-28] MEDS: RANEXA ER PO SCH ×2 (14:41→22:55)
[2018-09-28] MEDS: NEURONTIN PO SCH (14:42)
[2018-09-28] MEDS: PEPCID IV SCH ×2 (14:42→22:55)
[2018-09-28] MEDS: NORVASC PO SCH (14:42)
[2018-09-28] MEDS: celeXA PO SCH (14:43)
[2018-09-28] MEDS: COZAAR PO SCH (14:44)
[2018-09-28] MEDS: SODIUM CHLORIDE FLUSH SYRINGE 10 ML IV SCH ×2 (14:47→22:55)
[2018-09-28] MEDS: LANTUS SUB-Q SCH (15:00)
[2018-09-28] MEDS: K-DUR PO SCH (15:00)
--- NOTE | 2018-09-28 16:40 | Treadmill Report ---
INDICATION: Chest pain. FINDINGS: The left ventricular cavity is normal in size. The left ventricular ejection fraction is measured at 57%. There is normal wall motion and wall thickening. There is evidence of a large fixed basal and mid inferior, mid lateral wall defect of moderate intensity. There is no scintigraphic evidence of myocardial ischemia. CONCLUSION: 1. No scintigraphic evidence of myocardial ischemia. 2. Large fixed inferior and inferolateral wall defect comprising 20% of the left ventricular myocardium of moderate intensity. 3. Normal left ventricular ejection fraction and normal wall motion. 4. Clinical correlation is recommended. JOB# [id number] SAM/CHRISTOPHE
[2018-09-28] MEDS ORDERED: NEURONTIN PO SCH (22:00)
[2018-09-28] MEDS ORDERED: LOVENOX SUB-Q SCH (22:00)
[2018-09-29 07:19] LABS: BUN/Creatinine Ratio 16; Blood Urea Nitrogen 16 mg/dL (7-17); Calcium 8.8 mg/dL (8.4-10.2); Hemolysis Index 22
[2018-09-29] MEDS: NEURONTIN PO SCH (08:22)
[2018-09-29] MEDS: LANTUS SUB-Q SCH (08:23)
[2018-09-29] MEDS: HumaLOG SUB-Q SCH ×4 (09:21→12:58)
[2018-09-29] MEDS: LOPRESSOR PO SCH (09:23)
[2018-09-29] MEDS: K-DUR PO SCH (09:24)
[2018-09-29] MEDS: NORVASC PO SCH (09:24)
[2018-09-29] MEDS: RANEXA ER PO SCH ×2 (09:25→09:58)
[2018-09-29] MEDS: celeXA PO SCH (09:25)
[2018-09-29] MEDS: COZAAR PO SCH (09:25)
[2018-09-29] MEDS: BROVANA NEBU IH SCH (09:31)
[2018-09-29] MEDS: PULMICORT IH SCH (09:34)
[2018-09-29] MEDS ORDERED: PEPCID PO SCH (10:00)
[2018-09-29] MEDS: SODIUM CHLORIDE FLUSH SYRINGE 10 ML IV SCH (10:38)
--- NOTE | 2018-09-29 11:56 | Consultation ---
History of Present Illness Consult date: 09/29/18 Consult reason: syncope History of present illness: Patient is a 73 year old woman with multiple medical problems who has been lost to outpatient cardiac follow-ups. She has a cardiac history of coronary artery disease with prior bypass grafting. Post CABG, she developed CVA followed by DVT/PE previously treated with warfarin. Her latest cardiac workup was done in 2013. She underwent a cardiac cath reports an occluded SVG to RV branch, ectatic ROMERO to the second diagonal, patent SVG to first OM, patent stent in the mid LAD. An echocardiogram showed a welled preserved EF 50-55%. Patient was bought in and admitted with syncope. Patient reports she was walking outside to take the trash, when she came to herself she was on the ground. She denies chest pain, shortness of breath, palpitations or dizziness prior to and after passing out. Head CT scan reports no acute intracranial abnormalities. Chest x-ray was negative. Further evaluation with a persantine thallium stress test revealed a fixed inferior and inferolateral wall defect, no ischemia. Medications and Allergies Allergies Allergy/AdvReac Type Severity Reaction Status Date / Time aspirin Allergy Swelling Verified 06/26/16 18:35 Home Medications Medication Instructions Recorded Confirmed Last Taken Type Albuterol Sulfate [Ventolin HFA] 2 puff IH QID PRN 09/27/18 09/27/18 Unknown History Amlodipine Besylate [Norvasc] 10 mg PO QDAY 09/27/18 09/27/18 Unknown History Budesonide/Formoterol Fumarate 1 - 2 puff IH BID 09/27/18 09/27/18 Unknown History [Symbicort 160-4.5 Mcg Inhaler] Citalopram [celeXA] 20 mg PO QDAY 09/27/18 09/27/18 Unknown History Furosemide [Lasix] 20 mg PO QDAY 09/27/18 09/27/18 Unknown History Gabapentin [Neurontin] 100 mg PO BID 09/27/18 09/27/18 Unknown History Gabapentin [Neurontin] 300 mg PO HS 09/27/18 09/27/18 Unknown History Insulin Aspart [NovoLOG Flexpen] 10 units SUB-Q AC 09/27/18 09/27/18 Unknown History Insulin Glargine [Lantus] 40 units SUB-Q DAILY 09/27/18 09/27/18 Unknown History Losartan [Cozaar] 25 mg PO QDAY 09/27/18 09/27/18 Unknown History Metoprolol [Lopressor TAB] 50 mg PO BID 09/27/18 09/27/18 Unknown History Potassium Chloride [Klor-Con 10] 10 meq PO DAILY 09/27/18 09/27/18 Unknown History Ranolazine [Ranexa] 1,000 mg PO BID 09/27/18 09/27/18 Unknown History Rosuvastatin Calcium [Crestor] 40 mg PO DAILY 09/27/18 09/27/18 Unknown History Active Meds: Active Medications Acetaminophen (Tylenol) 650 mg PO Q4H PRN PRN Reason: Pain MILD(1-3)/Fever >100.5/[place] Albuterol (Proventil) 2.5 mg IH QIDRT PRN PRN Reason: Shortness Of Breath Amlodipine Besylate (Norvasc) 10 mg PO QDAY [facility] Last Admin: 09/29/18 09:24 Dose: 10 mg Documented by: Arformoterol Tartrate (Brovana Nebu) 15 mcg IH Q12HRT [facility] Last Admin: 09/29/18 09:31 Dose: 15 mcg Documented by: Atorvastatin Calcium (Lipitor) 40 mg PO DAILY [facility] Last Admin: 09/29/18 09:23 Dose: 40 mg Documented by: Budesonide (Pulmicort) 1 mg IH Q12HRT [facility] Last Admin: 09/29/18 09:34 Dose: 1 mg Documented by: Citalopram Hydrobromide (Celexa) 20 mg PO QDAY [facility] Last Admin: 09/29/18 09:25 Dose: 20 mg Documented by: Enoxaparin Sodium (Lovenox) 40 mg SUB-Q QDAY@2200 [facility] Last Admin: 09/28/18 22:55 Dose: 40 mg Documented by: Famotidine (Pepcid) 20 mg PO BID [facility] Last Admin: 09/29/18 11:25 Dose: 20 mg Documented by: Gabapentin (Neurontin) 100 mg PO BID@0800,1700 [facility] Last Admin: 09/29/18 08:22 Dose: 100 mg Documented by: Gabapentin (Neurontin) 300 mg PO HS [facility] Last Admin: 09/28/18 22:55 Dose: 300 mg Documented by: Hydromorphone HCl (Dilaudid) 0.5 mg IV Q3H PRN PRN Reason: Pain , Severe (7-10) Insulin Glargine (Lantus) 40 units SUB-Q QAMDIAB [facility] Last Admin: 09/29/18 08:23 Dose: 40 units Documented by: Insulin Human Lispro (Humalog) 10 unit SUB-Q AC [facility] Last Admin: 09/29/18 09:21 Dose: 10 unit Documented by: Insulin Human Lispro (Humalog) 0 unit SUB-Q ACHS [facility]; Protocol Last Admin: 09/29/18 09:21 Dose: 2 unit Documented by: Losartan Potassium (Cozaar) 25 mg PO QDAY [facility] Last Admin: 09/29/18 09:25 Dose: 25 mg Documented by: Metoprolol Tartrate (Lopressor) 50 mg PO BID [facility] Last Admin: 09/29/18 09:23 Dose: 50 mg Documented by: Ondansetron HCl (Zofran) 4 mg IV Q8H PRN PRN Reason: Nausea And Vomiting Oxycodone/Acetaminophen (Percocet 5/325) 1 tab PO Q6H PRN PRN Reason: Pain, Moderate (4-6) Potassium Chloride (K-Dur) 10 meq PO DAILY [facility] Last Admin: 09/29/18 09:24 Dose: 10 meq Documented by: Ranolazine (Ranexa Er) 1,000 mg PO BID [facility] Last Admin: 09/29/18 09:58 Dose: 1,000 mg Documented by: Sodium Chloride (Sodium Chloride Flush Syringe 10 Ml) 10 ml IV BID [facility] Last Admin: 09/29/18 10:38 Dose: 10 ml Documented by: Sodium Chloride (Sodium Chloride Flush Syringe 10 Ml) 10 ml IV PRN PRN PRN Reason: LINE FLUSH Physical Examination Vital Signs Pulse Resp Pulse Ox 74 21 95 09/27/18 07:33 09/27/18 07:33 09/27/18 07:33 General appearance: no acute distress HEENT: Positive: PERRL Neck: Positive: trachea midline Cardiac: Positive: Reg Rate and Rhythm Lungs: Positive: Decreased Breath Sounds Neuro: Positive: Grossly Intact Extremities: Absent: edema Results 09/27/18 08:24 09/29/18 06:21 Comprehensive Metabolic Panel 09/29/18 Range/Units 06:21 Sodium 139 (137-145) mmol/L Potassium 3.8 (3.6-5.0) mmol/L Chloride 100.2 (98-107) mmol/L Carbon Dioxide 27 (22-30) mmol/L BUN 16 (7-17) mg/dL Creatinine 1.0 D (0.7-1.2) mg/dL Glucose 170 H (65-100) mg/dL Calcium 8.8 (8.4-10.2) mg/dL Assessment and Plan Syncope CAD with 3v CABG 10/2011 ASA allergy Hypertension Prior CVA Prior DVT/PE
[2018-09-29 12:40] VITALS: BP 125/48
--- NOTE | 2018-09-29 14:06 | Discharge Summary ---
Providers - Providers Date of Admission: 09/27/18 12:41 Date of discharge: 09/29/18 Attending physician: FRANCINE MICHEL 09/28/18 12:35 Physical Therapy Evaluation and Treat [CONS] Routine Comment: Reason For Exam: placement 09/28/18 13:30 Consult to Cardiology [CONS] Routine Consulting Provider: NASIR BENAVIDES Reason For Exam: Syncope, abnormal stress test Primary care physician: SHANE RAINEY Hospitalization Reason for admission: syncope Condition: Stable Pertinent studies: Head CT Pelvic x-ray Chest x-ray MPS stress stress Carotid Doppler 2-D echo Hospital course: The patient is a 73-year-old woman history of coronary artery disease with three-vessel coronary bypass in October 2011, h/o CVA, DVT and pulmonary embolism was admitted to the hospital at this time following an episode of syncope outside her house. She describes coming out to deposit her trash, following which she passed out, with no prodrome, no symptoms of chest pain, palpitations or lightheadedness either before or following the event. Since the event, patient has been alert and oriented 3, comfortable, no acute distress, and symptom-free. EKG in the hospital is normal sinus rhythm, left ventricular hypertrophy by voltage criteria, no ST or T-wave abnormalities. Chest x-ray revealed clear lungs, normal chest x-ray. Cardiac isoenzyme levels were normal. She was ordered for an echocardiogram as well as a Lexiscan thallium stress test. 2-D echo showed preserved EF, MPI stress testing showed no scintigraphic Evidence of myocardial ischemia with a large fixed and he is inferior and inferolateral wall defect compromising 20% of the left vascular myocardium of moderate intensity with normal EF and wall motion. Patient was not noted to be orthostatic. She was monitored overnight, and was discharged home in stable condition with outpatient follow-up. Discharge diagnosis: Syncope, likely vasovagal HTN T2DM CAD with 3v CABG 10/2011 Prior CVA Prior DVT/PE Disposition: TO HOME OR SELFCARE Time spent for discharge: 34 minutes Core Measure Documentation - Palliative Care Palliative Care/ Comfort Measures: Not Applicable - Core Measures Any of the following diagnoses?: history only Exam - Constitutional Vitals: Temp Pulse Resp BP Pulse Ox 97.6 F 54 L 18 125/48 94 09/29/18 11:30 09/29/18 11:30 09/29/18 11:30 09/29/18 11:30 09/29/18 11:30 General appearance: Present: no acute distress, well-nourished - EENT Eyes: Present: PERRL ENT: hearing intact, clear oral mucosa - Neck Neck: Present: supple, normal ROM - Respiratory Respiratory effort: normal Respiratory: bilateral: CTA - Cardiovascular Heart Sounds: Present: S1 & S2. Absent: rub, click - Extremities Extremities: pulses symmetrical, No edema Peripheral Pulses: within normal limits - Abdominal General gastrointestinal: Present: soft, non-tender, non-distended, normal bowel sounds - Integumentary Integumentary: Present: clear, warm, dry - Musculoskeletal Musculoskeletal: gait normal, strength equal bilaterally - Psychiatric Psychiatric: appropriate mood/affect, intact judgment & insight - Neurologic Neurologic: CNII-XII intact, moves all extremities Plan Activity: advance as tolerated Weight Bearing Status: Partial Weight Bearing Diet: diabetic Follow up with: SHANE RAINEY MD [Primary Care Provider] - 3-5 Days
--- NOTE | 2018-09-29 20:17 | Vascular Lab Report ---
PROCEDURE: VL CAROTID DUPLEX BILAT TECHNIQUE: Duplex Doppler ultrasound of the common, internal and external carotid arteries and the v ertebral arteries was performed bilaterally. Mireles scale imaging, velocity spectral waveform analysis, and color flow Doppler were employed. HISTORY: syncope COMPARISONS: None . Note: Measurement of carotid stenosis is based on flow velocity values that correlate with the [place] Symptomatic Carotid Endarterectomy Trial (NASCET) based stenosis criteria using the internal carotid artery diameter as the denominator for stenosis calculation. FINDINGS: RIGHT carotid artery: Velocities: ICA PSV: 67 cm/sec ICA End diastolic: 15 cm/sec CCA PSV: 57 cm/sec IC/CC ratio: 1.17 Plaque: No significant plaque formation identified RIGHT vertebral artery: Antegrade systolic and diastolic flow LEFT carotid artery: Velocities: ICA PSV: 96 cm/sec ICA End diastolic: 41 cm/sec CCA PSV: 56 cm/sec IC/CC ratio: 1.71 Plaque/: Mild heterogeneous plaque noted. LEFT vertebral artery: Antegrade systolic and diastolic flow IMPRESSION: No hemodynamically significant carotid stenosis. This document is electronically signed by Vincent Robles MD., September 29 2018 08:15:14 PM ET
== END 2018-09-29 16:04 | disposition home or self-care (01) | DRG 312 ==
LOC: ED 06:43 → 4A 12:41
PROVIDERS: ADMIT Internal Medicine; ATTEND Internal Medicine
DX: R55 Syncope and collapse (principal); E11.9 Type 2 diabetes mellitus without complications; I11.0 Hypertensive heart disease with heart failure; I50.9 Heart failure, unspecified; J44.9 Chronic obstructive pulmonary disease, unspecified; I25.10 Atherosclerotic heart disease of native coronary artery without angina pectoris; G40.909 Epilepsy, unspecified, not intractable, without status epilepticus; Z95.1 Presence of aortocoronary bypass graft; Z79.899 Other long term (current) drug therapy; Z86.73 Personal history of transient ischemic attack (TIA), and cerebral infarction without residual deficits; Z86.718 Personal history of other venous thrombosis and embolism; Z86.711 Personal history of pulmonary embolism; Z79.4 Long term (current) use of insulin; Z88.6 Allergy status to analgesic agent; I25.2 Old myocardial infarction; Z82.49 Family history of ischemic heart disease and other diseases of the circulatory system; Z90.710 Acquired absence of both cervix and uterus
CPT/HCPCS: 36415; 70450; 71045; 72170; 78452; 80048; 80053; 80307; 80320; 81001; 82140; 82962; 83036; 83880; 84484; 85025; 85610; 85730; 87086; 93005; 93010; 93017; 93306; 93880; 94640; G0378; A9270-GY; A9502; G0480; J1650; J1815; J2785